=== PATIENT | female | born 1980 | race Two or more races ===

== ENCOUNTER → 2018-04-27 | Outpatient (CLI) | payer OTHER ==
[~2018-04-27] MED LIST: FERR325T5 PO; HYDR-653 PO; IBU800 PO; LEV112 PO; LEVO75TA68 PO; ONDA4TAB PO; OXYC-865 PO; PER PO; PREN-85 PO
== END ==
LOC: LAB 09:16
PROVIDERS: ATTEND Student in an Organized Health Care Education/Training Program
DX: O03.9 Complete or unspecified spontaneous abortion without complication (principal)
CPT/HCPCS: 36415; 84702

== ENCOUNTER → 2018-05-04 | Outpatient (CLI) | payer OTHER | LOC: LAB 09:46 | PROVIDERS: ATTEND Student in an Organized Health Care Education/Training Program | DX: O03.9 Complete or unspecified spontaneous abortion without complication (principal) | CPT/HCPCS: 36415; 84702 ==

== ENCOUNTER → 2018-05-18 | Outpatient (CLI) | payer OTHER | LOC: LAB 13:49 | PROVIDERS: ATTEND Student in an Organized Health Care Education/Training Program | DX: O03.9 Complete or unspecified spontaneous abortion without complication (principal) | CPT/HCPCS: 36415; 84702 ==